=== PATIENT | male | born 1995 | race Caucasian/White ===

== ENCOUNTER 2017-06-22 15:44 | Emergency (ER) | payer OTHER ==
[2017-06-22 16:08] VITALS: RESP 16; TEMP 98.6
--- NOTE | 2017-06-22 16:54 | EDPHY ---
H & P Stated Complaint: Rolled L ankle yesterday. - Personal History Current Tetanus/Diphtheria Vaccine: Unsure Current Tetanus Diphtheria and Acellular Pertussis (TDAP): Unsure - Medical/Surgical History Hx Asthma: Yes Hx Chronic Respiratory Disease: No Hx Diabetes: No Hx Cardiac Disease: No Hx Renal Disease: No Hx Cirrhosis: No Hx Alcoholism: No Hx HIV/AIDS: No Hx Splenectomy or Spleen Trauma: No Other PMH: asthma - Social History Smoking Status: Never smoked HPI/ROS: Chief complaint: Left ankle injury History of present illness: This is a 22-year-old male who presents to the emergency department for left ankle injury. Patient reports last night he rolled his ankle. Since then he has had pain and swelling. It makes it difficult to ambulate. He has taken ibuprofen with improvement in symptoms. He denies open wounds, abnormal coolness or paresthesias in the foot. No other trauma reported. (Marcos Chadwick) - Physical Exam Exam: General appearance: Alert, nontoxic Musculoskeletal: Tenderness to the medial aspect of the ankle and proximal foot. He is ranging the ankle although this causes pain. He is moving the digits of the foot well. Rest the ankle and foot are nontender. There is no tenderness to the knee or lower leg. Vascular exam: Normal pulses and capillary refill in the foot Neurologic exam: The patient has normal sensation and motor function distal to the injury. (Marcos Chadwick) Constitutional: Initial Vital Signs Temperature (C) 37.0 C 06/22/17 16:04 Heart Rate 67 06/22/17 16:04 Respiratory Rate 16 06/22/17 16:04 Blood Pressure 122/73 H 06/22/17 16:04 O2 Sat (%) 98 06/22/17 16:04 O2 Delivery Mode Room Air Allergies/Adverse Reactions: No Known Allergies Allergy (Unverified 06/22/17 16:08) Home Medications: Medication Instructions Recorded Albuterol 5 mg/ml INH 06/22/17 Medical Decision Making - Diagnostics Imaging: I viewed and interpreted images myself - Diagnostics Imaging Results: Imaging Impressions Ankle X-Ray 06/22/17 16:09 Impression: Soft tissue swelling without definite fracture of the left ankle. Foot X-Ray 06/22/17 16:31 Impression: No definite fracture of the left foot. ED Course/Re-evaluation: Patient seen under the supervision of my secondary supervising physician Dr. Nicky Mercado. Patient presents to the emergency department for left ankle injury. The foot is neurovascularly intact. X-rays are negative. By history and physical exam no evidence of trauma to other parts of the body. Home care is discussed. Return precautions are given. He is to follow up with [facility] for recheck. Patient voiced understanding and agreement with plan. ( Marcos Chadwick) The patient was evaluated and managed by the physician orthopedic assistant. I have reviewed this chart and I agree with the findings and plan of care as documented , as indicated by my signature. I am the secondary supervising physician. ( Nicky Mercado) Differential Diagnosis: Included but not limited to contusion, sprain, strain, fracture, joint dislocation (Marcos Chadwick) Departure - Departure Disposition: Home, Routine, Self-Care Clinical Impression: Sprained ankle Condition: Good Instructions: Ankle Sprain (ED) Additional Instructions: Follow-up with [facility] for further evaluation and care Use ibuprofen 600 mg 3 times a day for the next 2-3 days as needed for pain Ice the injury, 20 minutes on, 3 times daily for the next 3 days If symptoms worsen or new symptoms develop return to the emergency room for recheck Referrals: NONE *PRIMARY CARE P,. [Primary Care Provider] - As per Instructions
[2017-06-22 17:38] VITALS: BP 128/76; PULSE 68; O2SAT 97
== END 2017-06-22 17:38 | disposition home or self-care (01) ==
DX: S93.402A Sprain of unspecified ligament of left ankle, initial encounter (principal); J45.909 Unspecified asthma, uncomplicated; X58.XXXA Exposure to other specified factors, initial encounter
CPT/HCPCS: L4350